=== PATIENT | male | born 2000 | race Caucasian/White ===

== ENCOUNTER 2020-02-11 14:00 | Observation (INO) | payer OTHER, SELFPAY ==
[2020-02-11] VITALS (11 sets, daily range): BP systolic 93–149; BP diastolic 44–74; PULSE 65–96; RESP 16–18; TEMP 36.8–37.7; O2SAT 94–100; BMI 28.1; BMI 28.2; BMI 31.0
--- NOTE | 2020-02-11 14:04 | RAD_ITS ---
STUDY: X-RAY - RIGHT KNEE REASON FOR EXAM: Male, 20 years old. NAIL GUN WENT OFF ENTERING POSTERIOR KNEE. PT UNABLE TO STRAIGHTEN KNEE, TAKEN IS TECHNIQUE: 2 view(s) of the knee. COMPARISON: None. FINDINGS: Normal visualized distal femur. Normal visualized proximal tibia and fibula. Normal proximal tibiofibular articulation. Normal medial femorotibial compartment. Normal lateral femorotibial compartment. Normal patellofemoral articulation. A 7.2 cm metallic nail is seen entering the posterior aspect of the knee joint at the level of the popliteal fossa. The distal tip may lie within the medial aspect of the medial femoral condyle. RAD/Knee 1 or 2 Views IMPRESSION: Metallic nail seen entering the posterior aspect of the popliteal fossa with the distal tip lying in the region of the medial aspect of the distal medial femoral condyle. Electronically Signed: Max Saul, at 14:29 EST , Service support ,
--- NOTE | 2020-02-11 14:49 | ED.VISSUMM ---
- ER Visit Summary Date of Service: 02/11/20 Chief Complaint: Injury to right knee History of Present Illness: The patient is a 20 M with no primary care physician. He is never had a tetanus shot. He reports that he had a nail gun hanging out of his pouch and it shot up now into the back of his right knee. He has a sharp pain is 1010 severity. Is worsened by movement and relieved by rest. He complains of paresthesias in his foot. He denies any weakness. Physical Examination: Vitals: Stable. Afebrile. General: Well-nourished and well-developed. Head: Normocephalic atraumatic. Neck: Supple, no lymphadenopathy. No JVD. Nontender. Cardiovascular: Regular rate and rhythm. No murmurs. Respiratory: No respiratory distress. Clear to auscultation bilaterally. Abdominal: Soft, nontender, nondistended, normal bowel sounds. No guarding, rebound, or peritoneal signs. Back: Nontender. Extremities: In the popliteal fossa of the right knee there is a nail buried to the hub. He has a 2+ dorsalis pedis pulse, normal sensation light touch, and less than 2-second cap refill. Skin: Normal color, no rash. Neurologic: Alert and oriented ?3. Cranial nerves II through XII are intact. Normal strength and sensation. Psych: Normal affect. Test Results: Clinical Impression(s) from Imaging Studies Knee X-Ray 02/11/20 14:04 IMPRESSION: Metallic nail seen entering the posterior aspect of the popliteal fossa with the distal tip lying in the region of the medial aspect of the distal medial femoral condyle. Electronically Signed: Max Saul, at 14:29 EST , Service support , Lower Extremity CTA 02/11/20 16:02 IMPRESSION: The nail entering the posterior popliteal fossa angling into the distal femur is not causing disruption of vascular flow either within the popliteal artery or vein. No extravasation of contrast is noted. There is little significant soft tissue swelling. Electronically Signed: Juan Rausch MD at 17:51 EST , Service support , Emergency Department Course and Treatment: The x-ray shows that this is clearly intra-articular. Patient had an IV placed. He was given morphine, Zofran, and Ancef IV. He was given Adacel and tetanus immunoglobulin IM. Treatment Plan: Patient was discussed with Dr. Negrete. He will be taken to the operating room to remove this. Disposition: To the operating room in stable condition. Impression: 1. Right knee intra-articular foreign body. This note was generated with [employer] dictation software. It may contain incorrect words, spelling, and punctuation that were not noted in review of the chart prior to signing ED Disposition - Plan for ED Patient: Disposition: Acute [facility]
[2020-02-11] MEDS: Ondansetron 4 MG/2 ML Vial IV (15:00)
[2020-02-11] MEDS: Morphine 4 MG/ML Syringe IV ×4 (15:01→17:36)
[2020-02-11] MEDS: Cefazolin 2 GM in 0.9% Normal Saline 100 ML IV (15:03)
[2020-02-11] MEDS: Diphth,Pertuss(Acell),Tet Vac 0.5 ML Vial IM (15:08)
--- NOTE | 2020-02-11 15:35 | VDLE_ITS ---
Reason For Study: PAIN RIGHT RT Distal FV is compressible and augments normally. RT Distal FA demonstrates normal arterial flow patterns. RT T/P trunk shows normal arterial flow patterns. Unable to visualize T/P Trunk V. RT Gastrocnemius V is dilated and noncompressible with no flow noted. RT Gastrocnemius A demonstrates arterial flow patterns. Procedure This is a venous duplex using B-mode, color flow and spectral Doppler. Limited exam requested by Dr. Krishna Negrete for nail gun injury in right pop fossa area. Exam performed portable in ED. The study was technically difficult. Limited views were obtained. Unable to visualize the POP V & Artery due to nail in right knee joint causing accoustic shadowing and pain. Pants were nailed to leg in pop fossa area, Pt unable to straighten leg due to nail in knee joint. A preliminary report was called and/or faxed to Dr. Castaneda. Interpretation Summary Technically very limited examination as noted. No flow noted in the right gastrocnemius vein which is dialated Right distal femoral vein and femoral artery demonstrate flow Right arterial tibioperoneal trunk demonstrate normal triphasic flow. Right venous tibioperoneal trunk not visualized Ordering Physician: Maximo Castaneda Referring Physician: ROSA PCP Performed By: Carlota Christopher, SALINAS, RVT
--- NOTE | 2020-02-11 15:55 | ED.RN ---
PT BROTHER CALLED. UPDATED ON CURRENT HAPPENS
--- NOTE | 2020-02-11 16:02 | CT_ITS ---
STUDY: CTA OF THE ABDOMINAL AORTA AND BILATERAL LOWER EXTREMITIES REASON FOR EXAM: Male, 20 years old. Nail into posterior right knee, RADIATION DOSAGE (If Supplied By Facility): CTDIvol = ( 10.26 ) mGy, DLP = ( 384.40 ) mGycm TECHNIQUE: Axial CT angiography multi-detector data acquisition was obtained from the to the following intravenous administration of IV 100mL Isovue-370. Axial images and MIP images were reconstructed from the axial data set. Post-processing of the angiographic images was performed, with multiplanar reformation and 3D reconstruction. Individualized dose optimization techniques were used for this CT. TECHNICAL QUALITY: Good COMPARISON: None. Descriptors of Narrowing: None (0%) Mild (< 50%) Moderate (50-70%) Severe (70-90%) Subtotal/Total Occlusion (90-100%) Non-Evaluable (technically non-diagnostic FINDINGS: RIGHT LOWER EXTREMITY Right common femoral artery: No demonstrated narrowing. Right profundus femoris: No demonstrated narrowing. Right superficial femoral: No demonstrated narrowing. Right popliteal artery: No demonstrated narrowing. Right tibioperoneal trunk: No demonstrated narrowing. Right anterior tibial artery: No demonstrated narrowing. Right posterior tibial artery: No demonstrated narrowing. Right peroneal artery: No demonstrated narrowing. Soft tissue windows show the presence of the nail entering the popliteal fossa having an oblique angle into the distal femur. There is no active extravasation of either arterial or venous blood there is no pooling of blood posterior to the knee. There is very minimal soft tissue swelling. CT/CTA LWR EXTR W/O & W/DYE IMPRESSION: The nail entering the posterior popliteal fossa angling into the distal femur is not causing disruption of vascular flow either within the popliteal artery or vein. No extravasation of contrast is noted. There is little significant soft tissue swelling. Electronically Signed: Juan Rausch MD at 17:51 EST , Service support ,
[2020-02-11] MEDS: 0.9% Normal Saline 1,000 ML 1000 ML IV (16:22)
--- NOTE | 2020-02-11 16:35 | ED.RN ---
pt brother made aware of pt going to surgery. all questions answered.
[2020-02-11 16:41] LABS: Absolute Lymphocyte Count 2.06 X10^3/uL (0.83-4.51); Absolute Neutrophil Count 5.1 X10^3/uL (2.0-7.7); Basophil# 0.03 X10^3/uL; Basophil% 0.4 % (0-1); Eosinophil# 0.24 X10^3/uL; Eosinophils% 2.9 % (0-5); Hematocrit 44.1 % (40-54); Hemoglobin 14.5 g/dL (13.0-16.5); Lymphocyte # 2.06 X10^3/ul (4.0); Lymphocyte % 25.2 % (19-41); Mean Corp Hgb Conc 32.9 g/dL (32-36); Mean Corpuscular Hgb 30.1 pg (27.0-32.0); Mean Corpuscular Volume 91.5 fL (80-94); Monocyte# 0.69 X10^3/uL; Monocyte% 8.5 % (0-10); NRBC Flagged by Analyzer 0 % (0-5); Neutrophil % 62.5 % (47-70); Platelet Count 336 K/mm3 (150-450); RBC Distribution Width CV 12.5 % (11.6-14.6); RBC Distribution Width SD 42.1 fl (35.1-43.9); Red Blood Count 4.82 M/mm3 (4.6-6.2); White Blood Count 8.2 K/mm3 (4.4-11.0)
[2020-02-11 16:51] LABS: Prothrombin Time (Protime)PT. 12.9 SECONDS (11.7-14.9)
[2020-02-11 16:52] LABS: Partial Thromboplast Time 29.9 Seconds (24.1-36.2)
[2020-02-11 17:04] LABS: Anion Gap 7 (5-15); BUN 15 mg/dL (7-18); Calcium,Total 9.4 mg/dL (8.5-10.1); Chloride 104 mmol/L (98-107); Creatinine, Serum 1.15 mg/dL (0.70-1.30); EST Glomerular Filtration Rate 86 mL/min (>60); Est Glom Filt Rate - Afr Amer 104 mL/min (>60); Estimated Creatinine Clearance 92.46 ml/min; Glucose 108 mg/dL (74-106); Potassium 3.5 mmol/L (3.5-5.1); Sodium Level 140 mmol/L (136-145)
--- NOTE | 2020-02-11 18:12 | HP.PCM_ITS ---
History of Present Illness Date of Admission: 02/11/20 Chief Complaint: Right knee pain The patient is a 20 year old M no significant medical history presents today after an injury to his right knee at work. Patient notes he was walking with a nail gun in his belt [facility]. The nail gun went off and pierced the back of his knee. He presented to the emergency department. Reports 10 out of 10 pain with motion. Better with immobilization. Patient notes he has some paresthesias in the posterior calf. He denies paresthesias in his foot specifically. He has been unable to bear weight. He remains with his leg in a flexed position. Past Medical History Allergies No Known Allergies Allergy (Verified 02/11/20 14:02) Home Medications: Ambulatory Orders Medication Instructions Recorded NK 02/11/20 Surgical History: no surgical history Psychiatric History: No pertinent psych hx Lives: With Family Smoking Status: Never smoker Alcohol: None Drugs: None Review of Systems Constitutional: Denies: Chills, Fever, Weight Change HEENT: Denies: Head Aches, Sinus Congestion, Sinus Drainage Cardiovascular: Denies: Chest Pain, Palpitations Respiratory: Denies: Cough, Shortness of breath at rest, Sputum production Gastrointestinal: Denies: Abdominal Pain, Nausea, Vomiting Genitourinary: Denies: Dysuria Musculoskeletal: Reports: Joint Pain, Joint Tenderness Skin: Reports: Wounds - Puncture wound right posterior knee. Denies: Rash Neurological: Denies: Numbness, Tingling, Focal weakness Psychiatric: Denies: Anxiety, Depression, Homicidal Ideations, Suicidal Ideations Hematologic/ Lymphatic: Denies: Easy Bruising, Easy Bleeding VTE Information - Inpt Only VTE Present on Admission: No VTE Mechan Device Prophylaxis: SCD's VTE Pharm Prophylaxis ordered?: No Reason prophylaxis not ordered:: Treatment Not Indicated Objective: X-rays and CT angiogram were ordered. Also a ultrasound was done which was inconclusive. X-rays show an intra-articular nail which is bent going in the posterior knee and into the intercondylar notch. CT scan with angiogram reveals that there is good vascular flow with no extravasation. It is difficult to tell but seems to be likely that the nail is not within the bone itself. - Physical Exam Vitals/I&O's: Vital Signs Temp Pulse Resp BP Pulse Ox 99.6 F H 87 16 125/58 H 96 02/11/20 16:48 02/11/20 16:48 02/11/20 16:48 02/11/20 16:48 02/11/20 16:48 Oxygen Delivery Method Room Air Weight: 180 lb Body Mass Index (BMI) 28.2 Intake and Output for Last 24 Hours 02/09/20 02/10/20 02/11/20 23:59 23:59 23:59 Intake Total 110 / 110 Balance 110 / 110 General: Alert, Oriented x3, Cooperative HEENT: Atraumatic Oral: Moist Mucosa Neck: No JVD Lungs: - - Nonlabored breathing Cardiovascular: - - Regular pulse rate Abdomen: Non-Distended Extremities: - - Right lower extremity: Patient has a needle in the posterior knee going through his pant leg. He has bounding PT and DP pulses. Sensations intact light touch saphenous, sural, superficial peroneal, deep peroneal, tibial and sural nerve distributions. Severe pain with knee range of motion. Minima Skin: No rashes, Ulcer/ Wound Neurological: Cranial nerves II-XII grossly intact Psych/Mental Status: Normal Affect Microbiology Past 72 Hours 02/11/20 15:25 Mucosa - Nose SARS-CoV-2 Antigen (Rapid) - Final Laboratory Results 02/11/20 15:00: WBC 8.2, RBC 4.82, Hgb 14.5, Hct 44.1, MCV 91.5, MCH 30.1, MCHC 32.9, RDW Std Deviation 42.1, RDW Coeff of Brigid 12.5, Plt Count 336, MPV 10.0, Immature Gran % (Auto) 0.500, Neut % (Auto) 62.5, Lymph % (Auto) 25.2, Chaves % (Auto) 8.5, Eos % (Auto) 2.9, Baso % (Auto) 0.4, Absolute Neuts (auto) 5.1, Absolute Lymphs (auto) 2.06, Nucleated RBC % 0 02/11/20 15:00: PT 12.9, INR 1.0, APTT 29.9 02/11/20 15:00: Sodium 140, Potassium 3.5, Chloride 104, Carbon Dioxide 29.0, Anion Gap 7, BUN 15, Creatinine 1.15, Estim Creat Clear Calc 92.46, Est GFR (MDRD) Af Amer 104, Est GFR (MDRD) Non-Af 86, BUN/Creatinine Ratio 13.0, Glucose 108 H, Calcium 9.4 Assessment/Plan Intra-articular foreign body in the right knee. Patient has a nail going to the posterior knee. I did discuss the patient the concerns for intra-articular infection. Currently patient does not demonstrate evidence of vascular damage or vascular injury. There are concerns for intra-articular loose fragments of the debris as well as some that could be in the soft tissues posteriorly. The goal at this time is I explained the patient will be to remove the nail and then do an arthroscopic debridement of the knee as I feel this gives me the greatest opportunity to fully debride the knee and least risk to the patient for neurovascular damage. Risks and benefits of surgery were discussed the patient including but not limited to blood loss, DVTs, PEs, neurovascular damage, infection, the risk of anesthesia including loss of life. Patient also understands despite our best efforts he does have a risk of intra-articular infection. My plan will be for 24 hours of antibiotics after surgery. He has received tetanus and Ancef already. We will also have the patient discharged on antibiotics going home.
[2020-02-11] MEDS: Epinephrine (1 mg/ml) 1 MG/ML VIAL (19:29)
[2020-02-11] MEDS: Lactated Ringers 1,000 ML 100 ML IV (19:30)
[2020-02-11] MEDS: Cefazolin 1 GM/5 ML Vial (19:33)
[2020-02-11] MEDS: Bupiv/Epi 0.5% Mpf 30 ML Vial (19:33)
--- NOTE | 2020-02-11 20:04 | OP.PCM_ITS ---
Report of Operation Date of Procedure: 02/11/20 Pre-Operative Diagnosis: Intra-articular foreign body right knee Post-Operative Diagnosis: Intra-articular foreign body right knee. Partial ACL tear right knee Surgery/Procedure Performed:: Foreign body removal right knee posterior. Irrigation and debridement arthroscopic right knee Description of Surgical Findings:: Nail was removed posteriorly in its entirety. Intraoperatively arthroscopically the joint appeared healthy cartilage cuenca. In the intercondylar notch there appeared to be partial lack of ACL attachment to the lateral wall of the intercondylar notch software development leader: Honorio Velasquez Type of Anesthesia:: General Anesthesiologist: Katey Ferrari Special Medications: 2 g of Ancef Specimen's removed: Roel nail Estimated Blood Loss (mL): 20 Fluids Replaced: 1 L crystalloid Description of Procedure: On the date of the procedure, the patient's R lower extremity was marked in the preoperative area. Patient was brought back to the operating room where they were transferred to the bed. Anesthesia assumed control of the C-spine airway and administered anesthetic. After anesthetic was administered patient was then placed on the operating room table in the prone position all bony prominences were identified and well-padded. Timeout was called of when agreed upon the side, the site, procedure to be performed, patient's identity and antibiotics given. At this time the extra clothing was cut from the nail head. Betadine solution was used to prep the area. It was draped out with sterile drapes. Surgeon then scrubbed. Sterile gloves were donned. A sterile vice sheet metal shop foreman was attached to the nail head and a back slap was used to remove the nail. Once this was done a small skin lane was made in irrigation with normal saline was irrigated throughout the wound. We then closed the wound loosely with nylon suture. Patient was then flipped over to the supine position with his head and airway carefully monitored by anesthesia. All bony prominences were again identified and well-padded and the r leg was placed in the arthroscopic leg rocha. The contralateral leg was then draped over the bed and well-padded. There was padding underneath both sciatic nerves. The foot of the bed was then dropped and the r leg was prepped in a sterile fashion. The surgeon then scrubbed. Upon reentering the room, the operative leg was draped in a standard orthopedic fashion. A timeout was called, everyone agreed upon the side, the site, the procedure to be performed, patient's identity and antibiotics given. Incisions were marked out for the medial and lateral infrapatellar portals. Esmarch bandage was then used to exsanguinate the leg and tourniquet was placed at 250 mmHg. At this time, the lateral portal incision was made in a vertical fashion. The trocar was placed into the joint. The camera was then placed and the patellofemoral joint was visualized. The patella did appear to have no significant chondral changes. The trochlea appeared to have no significant chondral changes. We then directed our attention to the medial gutter where there was no foreign body. Then directed our attention to the medial joint compartment. There were no significant chondral changes on the medial distal femur, no significant chondral changes on the medial tibial plateau. The medial meniscus had no significant injury. The medial portal was then placed under direct visualization using a spinal needle an 11 blade scalpel. Attention was then turned towards the notch where the anterior cruciate ligament was was visualized. At this point we carefully visualize the attachment onto the lateral wall of the intercondylar notch. There appeared to be a partial disruption in this area. The ACL was probed using a 90 degree probe it did have decent tension but appeared to be small compared to the PCL and with. Anterior drawer test was performed and ACL appeared to provide an appropriate check rein. PCL was visualized and appeared intact. Attention was then directed towards the lateral compartment where the lateral distal femur had no significant chondral changes, the lateral proximal tibia had no significant chondral changes. The lateral meniscus had no significant injury. We then directed our attention to the lateral gutter, which was visualized and no free bodies were noted. At this time the wound was copiously irrigated out with 9 L normal saline with epinephrine. After the first 6 L we did switch to the lateral portal and again try to visualize the ACL from another viewpoint again it appeared that there was an incomplete injury to the attachment of the ACL onto the lateral wall of the intercondylar notch. The remainder of the normal saline was irrigated throughout the wound the wound was closed with 4-0 nylon and 0.5% Marcaine and epinephrine were injected for local anesthetic. Xeroform was placed over the incision. At this time the posterior knee was palpated. We were able to milk some the fluid that had buildup from the knee. There was no excess area of fluid under pressure in the posterior knee with near complete. Sterile dressing was placed. Compressive dressing was placed. Tourniquet was let down. For that there was then placed up. Patient was awakened by anesthesia patient was transferred to the PACU for recovery in stable condition. Postoperative plan: Patient will be made weight-bear as tolerated. Return to activities as tolerated. He will come to the office in 2 weeks for postoperative wound check and suture removal. If he is doing well that time he can follow-up as needed. Patient will receive 24 hours of antibiotics IV followed by 2 weeks of oral antibiotics. We will follow him up in the office. If he has symptoms and physical examination consistent with ACL instability an MRI can be performed. - Complications No intraoperative complications - Admit VTE Documentation VTE Present on Admission: No VTE Mechan Device Prophylaxis: SCD's, Thigh High IDA Hose VTE Pharm Prophylaxis ordered?: Yes
[2020-02-11] MEDS: Lactated Ringers 1,000 ML 999 ML IV (20:15)
[2020-02-11] MEDS: Lactated Ringers 1,000 ML 125 ML IV (20:47)
--- NOTE | 2020-02-11 21:40 | RAD_ITS ---
STUDY: X-RAY - RIGHT KNEE REASON FOR EXAM: Male, 20 years old. POST OP RIGHT KNEE TECHNIQUE: 2 view(s) of the knee. COMPARISON: Previous right knee radiograph 11/12/2019 FINDINGS: The nail has been completely removed from the knee leaving no evidence of a residual fracture. Normal femur, tibia, fibula and patella. Small amount of postoperative air and fluid in the suprapatellar pouch. Normal medial femorotibial compartment. Normal lateral femorotibial compartment. Normal patellofemoral articulation. RAD/Knee 1 or 2 Views IMPRESSION: The nail has been removed from the knee leaving no visible fracture deformity. Small amount of air and fluid in the knee joint. Electronically Signed: Swetha Eckert MD at 22:36 EST , Service support ,
[2020-02-11] MEDS: Acetaminophen 500 MG Tablet 1000 MG PO (22:40)
[2020-02-11] MEDS: Senna/Docusate Sodium 1 Tablet 2 TABLET PO (22:40)
[2020-02-12 01:30] VITALS: BP 94/44; PULSE 54; RESP 16; TEMP 36.5; O2SAT 97
[2020-02-12] MEDS: Cefazolin 1 GM/50 ML BAG IV ×2 (03:10→11:22)
[2020-02-12] MEDS: Acetaminophen 500 MG Tablet 1000 MG PO (05:55)
[2020-02-12 05:58] VITALS: BP 105/43; PULSE 93; RESP 18; TEMP 36.3; O2SAT 97
[2020-02-12 07:49] VITALS: BP 111/56; PULSE 56; RESP 18; TEMP 36.3; O2SAT 98
[2020-02-12] MEDS: Aspirin 325 MG Tablet PO (07:51)
[2020-02-12] MEDS: Ensure Surgery 237 ML LIQUID PO (07:54)
--- NOTE | 2020-02-12 09:32 | PN.ORTHO_ITS ---
Subjective: Patient is doing well overall. He does have some complaints of some paresthesias on plantar aspect of his foot. Mild paresthesias overall. His kn ee is improving. He has required some morphine overnight but recently has not taken a lot of pain medications. No fevers chills or night sweats. Vital signs have remained stable. Objective: Postoperative x-rays were reviewed showing no residual metal fragments - Physical Exam Vitals/I&O's: Vital Signs Temp Pulse Resp BP Pulse Ox 97.4 F L 56 L 18 111/56 L 98 02/12/20 07:49 02/12/20 07:49 02/12/20 07:49 02/12/20 07:49 02/12/20 07:49 Oxygen Delivery Method Room Air Weight: 198 lb Body Mass Index (BMI) 31.0 Intake and Output for Last 24 Hours 02/10/20 02/11/20 02/12/20 23:59 23:59 23:59 Intake Total 3350 / 3350 400 / 400 Output Total 450 / 450 800 / 800 Balance 2900 / 2900 -400 / -400 General: Alert, Oriented x3, Cooperative Extremities: No clubbing, Edema - Mild, Peripheral Pulses Normal - 2+ DP and PT pulses, - - Left lower extremity: Dressing is clean dry and intact. Calf soft and supple. Posterior knee is soft and supple. Patient does have some mild paresthesias throughout most significant in the tibial nerve distribution. Overall sensation is intact light touch saph/ansley/sp/dp/tib Microbiology Past 72 Hours 02/11/20 15:25 Mucosa - Nose SARS-CoV-2 Antigen (Rapid) - Final Laboratory Results 02/11/20 15:00: WBC 8.2, RBC 4.82, Hgb 14.5, Hct 44.1, MCV 91.5, MCH 30.1, MCHC 32.9, RDW Std Deviation 42.1, RDW Coeff of Brigid 12.5, Plt Count 336, MPV 10.0, Immature Gran % (Auto) 0.500, Neut % (Auto) 62.5, Lymph % (Auto) 25.2, [place] % (Auto) 8.5, Eos % (Auto) 2.9, Baso % (Auto) 0.4, Absolute Neuts (auto) 5.1, Absolute Lymphs (auto) 2.06, Nucleated RBC % 0 02/11/20 15:00: PT 12.9, INR 1.0, APTT 29.9 02/11/20 15:00: Sodium 140, Potassium 3.5, Chloride 104, Carbon Dioxide 29.0, Anion Gap 7, BUN 15, Creatinine 1.15, Estim Creat Clear Calc 92.46, Est GFR (MDRD) Af Amer 104, Est GFR (MDRD) Non-Af 86, BUN/Creatinine Ratio 13.0, Glucose 108 H, Calcium 9.4 Current Medications Acetaminophen (Acetaminophen 500 Mg Tablet) 1,000 mg PO Q8 [facility] Last Admin: 02/12/20 05:55 Dose: 1,000 mg Documented by: Aspirin (Aspirin 325 Mg Tablet) 325 mg PO DAILY@0800 [facility] Last Admin: 02/12/20 07:51 Dose: 325 mg Documented by: Doxycycline Monohydrate (Doxycycline 100 Mg Capsule) 100 mg PO BID [facility] Enteral Nutritional Formula (Ensure Surgery 237 Ml Liquid) 237 ml PO TIDCM [facility] Last Admin: 02/12/20 07:54 Dose: 237 ml Documented by: Lactated Ringer's () 1,000 mls @ 125 mls/hr IV .Q8H [facility] Last Admin: 02/11/20 20:47 Dose: 125 mls/hr Documented by: Cefazolin Sodium () 1 gm in 50 mls @ 150 mls/hr IV Q8H [facility] Stop: 02/12/20 11:49 Last Infusion: 02/12/20 03:30 Dose: Infused Documented by: Ketorolac Tromethamine (Ketorolac 30 Mg/Ml Syringe) 30 mg IV Q6H PRN PRN PRN Reason: Pain Score 1-5 Stop: 02/13/20 20:17 Meloxicam (Meloxicam 7.5 Mg Tablet) 7.5 mg PO BID [facility] Morphine Sulfate (Morphine 2 Mg/Ml Syringe) 2 - 4 mg IV Q2H PRN PRN PRN Reason: Pain Score 6-10 Ondansetron HCl (Ondansetron 4 Mg/2 Ml Vial) 4 mg IV Q8H PRN PRN PRN Reason: NAUSEA Oxycodone HCl (Oxycodone 5 Mg Tablet) 5 - 10 mg PO Q4H PRN PRN PRN Reason: Pain Score 4-10 Promethazine HCl (Promethazine 25 Mg/Ml Syringe) 12.5 mg IM Q6H PRN PRN; Protocol PRN Reason: NAUSEA/VOMITING Senna/Docusate Sodium (Senna/Docusate Sodium 1 Tablet) 2 tablet PO BID [facility] Last Admin: 02/11/20 22:40 Dose: 2 tablet Documented by: Medical Necessity - Tobacco Use Smoking Status: Current some day smoker Assessment/Plan Postop day 1 removal of intra-articular nail from popliteal fossa with arthroscopic debridement of the knee. 1. Pain control: Pain is currently controlled. Patient is ambulating to the bathroom when I saw him this morning. Tolerating range of motion. 2. PT: Range of motion as tolerated activity as tolerated. Weightbearing as tolerated. 3. DVT prophylaxis: 325 mg aspirin daily for 2 weeks. 4. Intra-articular foreign body: Patient had arthroscopic irrigation and debridement yesterday. At this time we will continue 24 hours of IV antibiotics. He can go home after his final dose. He will be discharged on Keflex and doxycycline for the next 2 weeks. 5. Disposition: Discharge home today after completed 24 hours IV antibiotics follow-up in the office in 2 weeks. RAKESH [facility] Office:
--- NOTE | 2020-02-12 09:37 | DCINST_ITS ---
Discharge Diet: No Restrictions Discharge Activity: May Drive - After walking without crutches, May not drive while taking narcotic pain medications. May shower in (days): 2 May resume sexual activity in: No Restrictions Ice area for (Minutes): 20 - every hour while awake. Weight Bearing Status: Weight bearing as tolerated Elevate: Operative Extremity Additional Activity Instructions:: Wear elastic stockings for 2 weeks after your surgery. Call your doctor if your incision/area has: Continuous Slow Oozing, Sudden Increased Bleeding, Increased Pain/ Swelling, Increased Redness, Foul Smelling Discharge Call your doctor if you observe: Fever of 101 or Higher, Coldness, Increased Pain, Numbness or Tingling, Change in Color, Calf discomfort, Uncontrolled pain Change Dressing in (Days):: 2 - and daily as needed. Remove Dressing in (days):: 2 Cleanse incision/area with: Soap & Water Additional Dressing/Incision Instructions:: If incision is clean dry and intact may leave the wound open to air and continue showering. If there is continued drainage continue daily dry dressing changes and keep incision clean dry and intact until there is no drainage. Allergies/Adverse Reactions: Allergies No Known Allergies Allergy (Verified 02/11/20 14:02) Medications to take at Discharge Acetaminophen [Tylenol] 1,000 mg PO Q8 tab 02/12/20 Aspirin 325 mg PO DAILY@0800 tab 02/12/20 Cephalexin [Keflex] 500 mg PO Q8 14 Days #42 cap 02/12/20 Doxycycline 100 mg PO BID #28 cap 02/12/20 Meloxicam [Mobic] 7.5 mg PO BID #60 tab 02/12/20 Oxycodone [Oxyir] 5 - 10 mg PO Q6H PRN PRN 4 Days #32 tab 02/12/20 The following prescriptions were given: Doxycycline 100 mg PO BID #28 cap Prescription Printed Cephalexin [Keflex] 500 mg PO Q8 14 Days #42 cap Prescription Printed Meloxicam [Mobic] 7.5 mg PO BID #60 tab Prescription Printed Oxycodone [Oxyir] 5 - 10 mg PO Q6H PRN PRN 4 Days #32 tab PRN Reason: Pain Score 4-10 Prescription Printed Primary Care Physician: NOT,DEFINED [NON-STAFF] - Test Results: Test results from this visit will be discussed in further detail at your follow- up appointment, if applicable. Please Follow Up With: Eliud Negrete MD When: 2 weeks postop. call office [phone] for appointment
[2020-02-12 11:25] VITALS: BP 96/43; PULSE 100; RESP 18; TEMP 36.3; O2SAT 96
== END 2020-02-12 13:11 | disposition home or self-care (01) ==
LOC: ED 16:07 → SDC 17:46 → MS3 02-14 09:21
PROVIDERS: Admitting Provider Specialist; Emergency Provider Emergency Medicine; Visit Provider Specialist
PROC: (CPT 29870; principal; 2020-02-11 16:40)
DX: S81.041A Puncture wound with foreign body, right knee, initial encounter (principal); S83.511A Sprain of anterior cruciate ligament of right knee, initial encounter; W29.4XXA Contact with nail gun, initial encounter; Y93.89 Activity, other specified; Y92.89 Other specified places as the place of occurrence of the external cause; Y99.0 Civilian activity done for income or pay; Z23 Encounter for immunization; R20.2 Paresthesia of skin
CPT/HCPCS: 00400; 20103; 73560; 73706; 80048; 85025; 85610; 85730; 87426; 90471; 90715; 93971; 96361; 96365; 96366; 96375; 96376; 97161; 99218; 99251; 99283; 99406; J1670; J7120; Q9967; A4216; G0378; G0463; J2405